=== PATIENT | male | born 1970 | race Hispanic/Latino ===

== ENCOUNTER → 2018-10-23 | Outpatient (CLI) | payer OTHER | END | disposition home or self-care (01) | LOC: EEVIPCON 08:32 → RAH 08:32 | PROVIDERS: ATTEND Internal Medicine | DX: J47.9 Bronchiectasis, uncomplicated (principal); M47.815 Spondylosis without myelopathy or radiculopathy, thoracolumbar region; Z86.11 Personal history of tuberculosis | CPT/HCPCS: 71250 ==